=== PATIENT | female | born 1950 | race Caucasian/White ===

== ENCOUNTER 2020-05-16 17:23 | Emergency (ER) | payer MEDICARE, BC ==
[2020-05-16] MEDS ORDERED: Potassium Chloride 20 MEQ Tab.ER PO ONE (19:06)
--- NOTE | 2020-05-16 22:18 | ER ---
HISTORY OF PRESENT ILLNESS: A 70-year-old lady here with complaints of being very sleepy for the last 3 days. She states she feels fine as far as any symptoms of illness. She is not having any pain. She is not coughing. No problems with nausea, vomiting, or an upset stomach. No chest pain. No headaches. She states that she just gets this weakness and she is sleeping a lot. Whenever she is sitting still, she is falling asleep. The patient noticed this 1st about 3 days ago. OBJECTIVE: GENERAL APPEARANCE: The patient is awake and alert. No obvious distress. VITAL SIGNS: Reviewed. Blood pressure 160/78. She is afebrile. O2 sats 97%, respirations 16. HEENT: Oral mucous membranes moist. Tonsils not enlarged or injected. Pharynx not inflamed. NECK: Supple. LUNGS: Clear. ABDOMEN: Soft, nontender. Bowel sounds are present. SKIN: Warm and dry. MEDICATIONS: Reviewing the patient's medications reveals that she does take Lasix 40 mg a day. She states she has been on this a long time and she has not been on any supplemental potassium. LABORATORY DATA AND X-RAYS: CBC shows a normal white count and hemoglobin. Monos are slightly elevated. Comprehensive metabolic panel shows a potassium level of 3.7, which is on the low end of normal. Other electrolytes are okay. Liver enzymes are okay. Magnesium level is also normal. An EKG was also done, which showed a normal sinus rhythm. DIAGNOSIS: Weakness. After ruling out other causes I am strongly suspicious this is symptomatic hypokalemia even though her potassium level is just above the low end of normal at 3.7. TREATMENT PLAN: We will put the patient on a trial of K-Dur 20 mEq tonight followed by 10 mEq a day, giving a script for 10 tablets. Activity should be as tolerated. I do want her to follow up within a few days with her primary care provider. She states that she has a virtual visit coming up on May 24 as long as her symptoms do not get worse, that would be a reasonable followup. CRS/MODL /[id number] FRANSICO
== END 2020-05-16 19:09 | disposition home or self-care (01) ==
LOC: LB.ED 17:23
DX: R53.1 Weakness (principal)
CPT/HCPCS: 36415; 80053; 83735; 85025; 93005; 99284; 99285; A9270

== ENCOUNTER 2020-06-17 10:32 | Emergency (ER) | payer MEDICARE, BC ==
--- NOTE | 2020-06-17 14:47 | EDM.PDOC ---
ED HPI GENERAL MEDICAL PROBLEM - General Chief Complaint: General Stated Complaint: VERTIGO Time Seen by Provider: 06/17/20 15:21 Source of Information: Reports: Patient, RN, RN Notes Reviewed - History of Present Illness INITIAL COMMENTS - FREE TEXT/NARRATIVE: Patient has dizziness she thinks is from her ears. She feels this is more on the left than the right. Dizziness started last night and increased today. She has had some small emesis related to nausea from dizziness. Onset: Sudden Onset Date: 06/16/20 Onset Time: 14:00 Duration: Hour(s): Location: Reports: Head Quality: Reports: Other (dizziness - cant differentiate between room spinning or equilbrium imbalance) Improves with: Reports: Rest Worsens with: Reports: Movement Context: Reports: Other (sudden onset) Associated Symptoms: Reports: Nausea/Vomiting. Denies: Confusion, Chest Pain, Cough, Diaphoresis, Fever/Chills, Headaches Treatments [employer]INTE[employer]CE [employer]: Reports: Other (see below) (tried eply manuver at home as seen on you-tube) - Related Data Allergies Allergy/AdvReac Type Severity Reaction Status Date / Time amlodipine Allergy Edema Verified 06/17/20 13:09 lisinopril Allergy Bronchospas Verified 06/17/20 13:08 ms Home Meds: Home Meds Furosemide 06/17/20 [History] Losartan Potassium 06/17/20 [History] Meclizine [Antivert] 25 mg PO BID PRN 10 Days #20 tab 06/17/20 [Rx] Methylsulfonylmethane [MSM] 1,500 mg PO DAILYBH 06/17/20 [History] Metoprolol Tartrate 06/17/20 [History] Mv-Mn/Folic AC/Calcium/Vit K1 [Women's 50 Plus Multivit Tab] 1 tab OP 06/17/20 [History] Omeprazole 06/17/20 [History] Oxybutynin Chloride 06/17/20 [History] Oxybutynin Chloride 06/17/20 [History] atorvaSTATin Calcium [Atorvastatin Calcium] 06/17/20 [History] cloNIDine HCL [Clonidine HCl] 06/17/20 [History] hydrALAZINE HCl [Hydralazine HCl] 06/17/20 [History] Past Medical History HEENT History: Reports: Impaired Vision Cardiovascular History: Reports: Hypertension, Other (See Below) Other Cardiovascular History: ablation at 41 yrs old Gastrointestinal History: Reports: GERD Other Musculoskeletal History: partial right knee replacement, orthoscopic surgery on left, both shoulders have had roter cuff surgery Neurological History: Reports: TIA Other Neuro History: new onset of vertigo Endocrine/Metabolic History: Reports: Hyperparathyroidism Oncologic (Cancer) History: Reports: Basal Cell Carcinoma, Breast Other Dermatologic History: few spots of basal cell carcinoma removed - Past Surgical History Neurological Surgical History: Reports: None Social & Family History - Family History Family Medical History: Noncontributory Respiratory: Reports: None GI: Reports: None Musculoskeletal: Reports: None Psychiatric: Reports: None Endocrine/Metabolic: Reports: None Hematologic: Reports: None - Tobacco Use Smoking Status *Q: Never Smoker Second Hand Smoke Exposure: No - Caffeine Use Caffeine Use: Reports: None Other Caffeine Use: occassionally drinks a pop - Alcohol Use Days Per Week of Alcohol Use: 2 Number of Drinks Per Day: 2 Total Drinks Per Week: 4 - Recreational Drug Use Recreational Drug Use: No ED ROS GENERAL - Review of Systems Review Of Systems: See Below Constitutional: Reports: Fatigue HEENT: Reports: Glasses, Vertigo Respiratory: Reports: No Symptoms Cardiovascular: Denies: Chest Pain, Blood Pressure Problem, Lightheadedness, Palpitations Endocrine: Reports: No Symptoms GI/Abdominal: Denies: Abdominal Pain : Reports: No Symptoms Musculoskeletal: Denies: Neck Pain, Back Pain, Muscle Stiffness Skin: Reports: No Symptoms Neurological: Reports: Dizziness, Syncope. Denies: Confusion, Headache, Numbness, Paresthesia, Seizure, Tingling, Tremors, Trouble Speaking, Difficulty Walking Psychiatric: Reports: No Symptoms Hematologic/Lymphatic: Reports: No Symptoms Immunologic: Reports: No Symptoms ED EXAM, GENERAL - Physical Exam Exam: See Below Exam Limited By: No Limitations General Appearance: Alert, WD/WN, Anxious, Moderate Distress (related to dizziness) Eye Exam: Bilateral Eye: Normal Fundi, Normal Inspection, PERRL Ears: Normal External Exam, Normal Canal, Hearing Grossly Normal, Normal TMs Nose: Normal Inspection, Normal Mucosa, No Blood Throat/Mouth: Normal Inspection, Normal Lips, Normal Teeth, Normal Gums, Normal Oropharynx Head: Atraumatic Neck: Normal Inspection, Supple, Non-Tender, Full Range of Motion Respiratory/Chest: No Respiratory Distress, Lungs Clear, Normal Breath Sounds Cardiovascular: Normal Peripheral Pulses, Regular Rate, Rhythm, No Edema, No Gallop, No JVD, No Murmur, No Rub Peripheral Pulses: 2+: Carotid (L), Carotid (R), Radial (L), Radial (R) GI/Abdominal: Normal Bowel Sounds, Soft, Non-Tender, No Organomegaly, No Distention, No Abnormal Bruit Back Exam: Normal Inspection Extremities: Normal Inspection, Normal Range of Motion, Non-Tender, No Pedal Edema Neurological: Alert, Oriented, CN II-XII Intact, Normal Cognition, Normal Gait, Normal Reflexes, No Motor/Sensory Deficits Psychiatric: Normal Affect, Normal Mood Skin Exam: Warm, Dry, Intact, Normal Color, No Rash Lymphatic: No Adenopathy Course - Vital Signs Last Recorded V/S: Last Vital Signs Temp 35.9 C L 06/17/20 11:44 Pulse 97 06/17/20 11:44 Resp 16 06/17/20 11:44 BP 197/90 H 06/17/20 11:44 Pulse Ox 98 06/17/20 11:13 - Orders/Labs/Meds Labs: Laboratory Tests 06/17/20 06/17/20 Range/Units 11:48 12:00 WBC 7.8 (4.0-11.0) K/uL RBC 4.84 (3.80-5.80) M/uL Hgb 15.1 (11.5-16.5) g/dL Hct 43.5 (37.0-47.0) % MCV 90 (76-96) fL MCH 31.2 (27.0-32.0) pg MCHC 34.7 (31.0-35.0) g/dL RDW 13.9 (11.0-16.0) % Plt Count 228 (150-500) K/uL MPV 9.6 (6.0-10.0) fL Neut % (Auto) 67.4 (45.0-70.0) % Lymph % (Auto) 23.7 (20.0-40.0) % [place] % (Auto) 7.3 (3.0-10.0) % Eos % (Auto) 1.0 (1.0-5.0) % Baso % (Auto) 0.6 H (0.0-0.5) % Neut # (Auto) 5.24 (2.00-7.50) K/uL Lymph # (Auto) 1.85 (1.50-4.00) K/uL [place] # (Auto) 0.57 (0.20-0.80) K/uL Eos # (Auto) 0.08 (0.04-0.40) K/uL Baso # (Auto) 0.05 (0.02-0.10) K/uL Sodium 138 (136-145) mmol/L Potassium 3.8 (3.5-5.1) mmol/L Chloride 102 (98-107) mmol/L Carbon Dioxide 27.7 (21.0-32.0) mmol/L Anion Gap 12.1 (5.0-15.0) mmol/L BUN 18 D (8-26) mg/dL Creatinine 0.74 (0.55-1.02) mg/dL Est Cr Clr Drug Dosing 61.96 mL/min Estimated GFR (MDRD) > 60 (>60) MLS/MIN BUN/Creatinine Ratio 24.3 (6-25) Glucose 119 H (74-100) mg/dL Calcium 8.9 (8.5-10.1) mg/dL Lab returns without significant reason for dizziness/vertigo. - Re-Assessments/Exams Free Text/Narrative Re-Assessment/Exam: 06/17/20 14:55 Eply maneuver was applied to the right without significant improvement, dizziness remains but not as bad as the initial onset Eply maneuver repeated to the left with significant improvement shortly after the procedure. Patient continues somewhat dizzy and very tired but states feeling better. Tolerated both maneuvers without emesis. 06/17/20 14:58 After lengthy discussion and education, patient elects to try meclizine twice a day and followup with her primary care provider for further evaluation. Patient states dizziness very minimal on departure and remains without nausea at this time. Departure - Departure Time of Disposition: 15:30 Disposition: Home, Self-Care 01 Condition: Fair Clinical Impression: Vertigo - Discharge Information *PRESCRIPTION DRUG MONITORING PROGRAM REVIEWED*: Not Applicable *COPY OF PRESCRIPTION DRUG MONITORING REPORT IN PATIENT JESSICA: Not Applicable Prescriptions: Meclizine [Antivert] 25 mg PO BID PRN 10 Days #20 tab PRN Reason: Dizziness Instructions: How to Perform the Emili Maneuver, Dizziness, [id number] Forms: ED Department Discharge Care Plan Goals: Followup with primary care provider Thursday or Thursday if dizziness continues other reddy may appointment for follow up at your convince Sepsis Event Note (ED) - Evaluation Sepsis Screening Result: No Definite Risk - Focused Exam Vital Signs: Vital Signs Temp Pulse Resp BP Pulse Ox 06/17/20 11:44 35.9 C L 97 16 197/90 H 06/17/20 11:13 36.1 C 16 190/94 H 98
== END 2020-06-17 15:30 | disposition home or self-care (01) ==
LOC: LB.ED 10:32
DX: R42 Dizziness and giddiness (principal); R11.2 Nausea with vomiting, unspecified; I10 Essential (primary) hypertension; K21.9 Gastro-esophageal reflux disease without esophagitis; Z88.8 Allergy status to other drugs, medicaments and biological substances; Z86.73 Personal history of transient ischemic attack (TIA), and cerebral infarction without residual deficits; Z98.890 Other specified postprocedural states
CPT/HCPCS: 36415; 80048; 85025; 99284; A9270; 99283

== ENCOUNTER 2024-08-27 17:53 | Emergency (ER) | payer MEDICARE, BC ==
[2024-08-27] MEDS: Lidocaine 1% 5 ML VIAL INJECT ONE (18:05)
[2024-08-27] MEDS: Diphtheria,Pertussis(Acell),Tetanus Vaccine 0.5 ML Syringe IM ONE (18:40)
== END 2024-08-27 18:45 | disposition home or self-care (01) ==
LOC: LB.ED 17:53
DX: S60.351A Superficial foreign body of right thumb, initial encounter (principal); I10 Essential (primary) hypertension; Z86.73 Personal history of transient ischemic attack (TIA), and cerebral infarction without residual deficits; Z79.899 Other long term (current) drug therapy; Z88.8 Allergy status to other drugs, medicaments and biological substances; Z23 Encounter for immunization; W45.8XXA Other foreign body or object entering through skin, initial encounter
CPT/HCPCS: 90471; 90715; 99282-25; 99283